=== PATIENT | female | born 2000 | race Caucasian/White ===

== ENCOUNTER 2021-06-24 09:24 | Emergency (ER) | payer OTHER, SELFPAY ==
--- NOTE | ~2021-06-24 | CT_ITS ---
EXAMINATION: CT brain wo con DATE: 06/24/2021 17:20 INDICATION: Altered mental status. TECHNIQUE: Computed tomography (CT) of the head was performed without intravenous contrast. The mA wa s adjusted according to patient size. Iterative reconstruction technique was employed. The dose-lengt h product was 605.33 mGy-cm. COMPARISON: None FINDINGS: There is no intracranial hemorrhage, acute infarction, or abnormal intracranial mass lesion . The ventricles are normal in size. There is mild mucosal thickening in the ethmoid sinuses. The mas toid air cells are normal. The orbits are normal. IMPRESSION: 1. Normal brain. Reviewed, dictated and finalized at location A. IMPRESSION: 1. Normal brain.
[2021-06-24 09:39] VITALS: BP 154/111; PULSE 114; RESP 20; TEMP 36.8; O2SAT 99
--- NOTE | 2021-06-24 10:07 | PC.NURSE ---
PA at bedside for assessment. Very difficult to obtain information from pt. Pt very guarded. Appears fearful and not trusting of others. When asked if pt would like to be seen today she did reply yes . Pt unable to explain what she would like to be seen for at this time. PA at bedside for 1:1 conversation with pt.
--- NOTE | 2021-06-24 10:21 | PC.NURSE ---
Per pts mom who called, pt chelaservando slept in several days and doesnt believe she is in her right mind . She is out of town at this time but will be boarding a plane to head to this facility.
--- NOTE | 2021-06-24 10:35 | PC.NURSE ---
AARONA still at bedside speaking with pt.
--- NOTE | 2021-06-24 10:42 | ED.GENADULT ---
HPI - General Adult General Chief complaint: Psychiatric Symptoms <Pamela Dykes PA-C - Last Filed: 06/24/21 21:18> Stated complaint: depression? <Pamela Dykes PA-C - Last Filed: 06/24/21 21:18> Time Seen by Provider: 06/24/21 09:47 <Pamela Dykes PA-C - Last Filed: 06/24/21 21:18> Source: patient <ANKIT Damico Last Filed: 06/24/21 21:18> Mode of arrival: ambulatory <ANKIT Damico Last Filed: 06/24/21 21:18> Limitations: other (patient is very guarded) <Pamela Dykes PA-C - Last Filed: 06/24/21 21:18> History of Present Illness HPI narrative: This is a 20 year old female that presents to the ER for suicidal ideations. Reported to nurse at triage she had thoughts of harming herself. Does have history of previous suicide attempt. Per father patient has not been acting right. Reports she has been very quiet and has not hardly slept. Patient reports recently attending a constitution party where she drank a lot of alcohol and smoked weed. Uncertain if something maybe happened at this constitution party as to why she is feeling suicidal. Patient is very guarded and will not answer most questions. Patient did speak with KIM Hernandez and stated there has not been anything certain that happened recently. She has just had worsening depression lately. She does report that her grandfather recently . She was having thoughts this morning of harming herself, but does not have any specific plan. <Pamela Dykes PA-C - Last Filed: 06/24/21 21:18> Related Data Allergies/adverse reactions: Allergies Allergy/AdvReac Type Severity Reaction Status Date / Time No Known Allergies Allergy Verified 06/24/21 10:13 <Pamela Dykes PA-C - Last Filed: 06/24/21 21:18> Review of Systems Review of Systems: CONSTITUTIONAL: Denies fever PSYCHIATRIC: Reports anxiety and depression. <ANKIT Damico Last Filed: 06/24/21 21:18> All systems reviewed & are unremarkable except as noted in HPI and below <Pamela Dykes PA-C - Last Filed: 06/24/21 21:18> [facility] Past Medical History Medical History: Medical History (Updated 06/25/21 @ 00:00 by Anaid Loera) History of depression <Pamela Dykes PA-C - Last Filed: 06/24/21 21:18> Social History Social History: Social History (Updated 06/24/21 @ 10:46 by Pamela Dykes PA-C) Alcohol intake: current Substance use: current Substance use type: marijuana <Pamlea Dykes PA-C - Last Filed: 06/24/21 21:18> Exam Narrative: GENERAL: Well-appearing, well-nourished, anxious HEAD: Normocephalic, atraumatic. EYES: PERRLA and EOMI. ENT: Nares clear, no rhinorrhea or epistaxis. Mucous membranes moist. Oropharynx without tonsillar hypertrophy exudate or other lesions. Bilateral TMs pearly fink non-bulging NECK: Supple. No adenopathy or masses. CHEST: Clear to auscultation. No respiratory distress. No wheezes rales or rhonchi HEART: Regular rate and rhythm. No murmur heard. Normal peripheral pulses. EXTREMITIES: Normal range of motion. No edema. SKIN: Warm, dry, no rash. NEURO: No focal deficits. Alert and oriented x3. PSYCH: Patient does not make eye contact. She is very anxious appearing. Trembling at times and fidgeting with her hands <Pamela Dykes PA-C - Last Filed: 06/24/21 21:18> Course Course Emergency Course: 13:00 Patient is medically cleared for evaluation by crisis 20:00 Patient felt to not meet criteria for involuntary admission at [facility]. Re-evaluated by crisis. Patient will be safety planned. Will be released in the care of her mother. They would like to obtain care closer to [place] in [place] <Pamela Dykes PA-C - Last Filed: 06/24/21 21:18> Consultations Consultation #1: Crisis has evaluated patient and recommends patient be hospitalized. <Pamela Dykes PA-C - Last Filed: 06/24/21 21:18> Date: 06/24/21 <Pamela Dykes PA-C - Last Filed: 06/24/21 21:18> Lisandro
--- NOTE | 2021-06-24 11:00 | PC.NURSE ---
After sitting and speaking with pt, pt reports she has been feeling depressed for a while and things just recently got overwhelming for her. Pt states she has had suicidal thoughts in the past but never acted upon them. Pt states she was having suicidal thoughts this morning but she pushed them away . Pt states she is not currently having suicidal thoughts. She states she has never seen a psychiatrist or counselor for her depression but that her friends have been urging her to do so. Pt reports nothing bad happened to her on Tuesday night but that it was just too much for her. Pt becoming more trusting and open with staff. Pt willingly changed out of belongings and placed in paper scrubs. Belongings secured at nurses station. Pt placed on 1:1 observation for safety. Pt updated on plan of care and agreeable to all interventions.
[2021-06-24 11:21] LABS: Basophils Percent Auto 0.5 % (0.2-1.2); Hematocrit 44.2 % (37.0-47.0); Hemoglobin 15.3 g/dL (12.0-15.0); Immature Granulocyte Absolute 0.01 K/mm3 (0.00-0.031); Immature Granulocyte Percent A 0.2 % (0-0.5); Lymphocytes Absolute Auto 1.29 K/mm3 (0.9-3.2); Lymphocytes Percent Auto 20.6 % (18.3-44.2); Mean Corpuscular HGB Conc 34.6 g/dl (32-36); Mean Corpuscular Hemoglobin 30.8 pg (26-34); Mean Corpuscular Volume 88.9 fl (80-100); Mean Platelet Volume 8.6 fl (7.4-10.4); Monocytes Absolute Auto 0.5 K/mm3 (0.1-0.6); Neutrophils Absolute Auto 4.4 K/mm3 (1.3-6.7); Neutrophils Percent Auto 70.7 % (45.5-73.1); Platelet Count Result 298 k/mm3 (150-375); Red Blood Count 4.97 M/mm3 (4.2-5.4); Red Cell Distribution Width 12.8 % (11.5-14.5); White Blood Count 6.3 K/mm3 (4.5-10.0)
[2021-06-24 11:44] LABS: Ethanol < 10 mg/dL (<10)
[2021-06-24 11:54] LABS: Alanine Aminotransferase 23 U/L (4-35); Albumin Level 5.4 g/dL (3.7-5.6); Alkaline Phosphatase 109 U/L (45-116); Anion Gap 13 mmol/L (8-16); Aspartate Amino Transferase 29 U/L (14-36); Bilirubin,Total 1.2 mg/dL (0.2-1.3); Blood Urea Nitrogen 9 mg/dL (8-21); Carbon Dioxide 24 mmol/L (22-30); Chloride 104 mmol/L (98-107); Estimated CRCL calculation 98 ml/min; Estimated Glomerular Filt Rate > 60; Glucose 120 mg/dL (65-110); Potassium 3.9 mmol/L (3.4-5.0); Sodium 141 mmol/L (134-143)
[2021-06-24 13:00] LABS: Add Urine Microscopic? NO; Appearance Urine Clear (Clear); Bilirubin Urine Negative (Negative); Blood Urine Negative (Negative); Color Urine Straw (Yellow); Glucose Urine UA Negative (Negative); Ketones Urine Negative (Negative); Leukocyte Esterase Ur Negative LEU/UL (Negative); Nitrate Urine Negative (Negative); Protein Urine Negative (Negative); Specific Grav Ur 1.009 (1.001-1.035); Urobilinogen Urine Negative mg/dL (<2.0)
[2021-06-24 13:24] LABS: Amphetamine Screen Urine Negative (Negative); Barbiturate Screen Urine Negative (Negative); Benzodiazepines Screen Urine Negative (Negative); Cannabinoid Screen Urine Negative (Negative); Cocaine Screen Urine Negative (Negative); Methadone Screen Urine Negative (Negative); Opiate Screen Urine Negative (Negative); Phencyclidine Screen Urine Negative (Negative)
--- NOTE | 2021-06-24 17:02 | PC.NURSE ---
Rapid covid test administered. Lab called to alert we will be tubing rapid test.
[2021-06-24 17:12] LABS: Lymphocytes Absolute Manual 2.52 K/mm3 (1.1-4.5); Monocytes Absolute Manual 0.25 K/mm3 (0.1-0.90); Monocytes Percent Manual 4 % (3-9); Neutrophils Percent Manual 56 % (46-73); Total Cells Counted 100
[2021-06-24 17:13] LABS: Platelet Estimate Adequate (Adequate)
[2021-06-24 17:29] LABS: EDCOVIDSCREEN Negative (Negative)
[2021-06-24] MEDS: LORazepam (*CRX) 0.5 MG TABLET PO (18:08)
--- NOTE | 2021-06-24 18:16 | PC.NURSE ---
Pt increasingly anxious, PA Pamela aware and ordered PO ativan which has been administered. Pt denies hallucinations, voices, or suicidal ideation at this time. Hesitant to answer questions, quiet and flat affect.
--- NOTE | 2021-06-24 20:16 | PC.NURSE ---
Crisis clerical methods analyst returned to see patient.
[2021-06-24 21:37] VITALS: BP 146/94; PULSE 109; TEMP 36.9; O2SAT 98
== END 2021-06-24 21:45 | disposition home or self-care (01) ==
PROVIDERS: Physician Assistant; Emergency Provider General Practice
DX: Z20.822 Contact with and (suspected) exposure to COVID-19 (principal); F32.A Depression, unspecified
CPT/HCPCS: 36415; 70450; 80053; 80307; 81003; 81025; 84443; 85025; 87426; 99284; A9270; C9803